=== PATIENT | male | born 1970 | race Caucasian/White ===

== ENCOUNTER 2018-06-11 11:48 | Emergency (ER) | payer MEDICAID ==
[~2018-06-11] VITALS: Ht 177.8 cm; Wt 68.0 kg
--- NOTE | 2018-06-11 12:10 | Emergency Room Report ---
History of Present Illness General Chief Complaint: Laceration Source: Patient Present Illness [facility] This patient c/o lac to left leg about 11 pm last night from glass. No other complaints. Allergies: Coded Allergies: No Known Allergies (Unverified , 06/11/18) Nursing Documentation-[facility] Past Medical History: No History, Except For Review of Systems Constitutional: Reports: no symptoms Eye: Reports: no symptoms ENT: Reports: no symptoms Respiratory: Reports: no symptoms Cardiovascular: Reports: no symptoms Gastrointestinal: Reports: no symptoms Genitourinary: Reports: no symptoms Musculoskeletal: Reports: see HPI Skin: Reports: no symptoms Psychiatric: Reports: no symptoms Neurological: Reports: no symptoms Endocrine: Reports: no symptoms Hematologic/Lymphatic: Reports: no symptoms Allergic: Reports: no symptoms All Other Systems: negative except mentioned in HPI Physical Exam Vital Signs Date Time Temp Pulse Resp B/P (MAP) Pulse Ox O2 Delivery O2 Flow Rate FiO2 06/11/18 11:49 97.9 80 18 116/75 99 97.9 Sp02 EP Interpretation: reviewed, normal General Appearance: normal inspection, well appearing, no apparent distress, alert, GCS 15, non-toxic Head: normocephalic, atraumatic Eyes: bilateral eye normal inspection, bilateral eye PERRL, bilateral eye EOMI ENT: normal ENT inspection, hearing grossly normal, normal pharynx, no angioedema, normal voice, moist mucus membranes Neck: normal inspection, full range of motion, supple, no meningismus, no bony tend Respiratory: normal inspection, lungs clear, normal breath sounds, no rhonchi, no respiratory distress, no retraction, no accessory muscle use, no wheezing Cardiovascular #1: normal inspection, regular rate, rhythm, no edema Gastrointestinal: normal inspection, normal bowel sounds, non tender, soft, no mass, non-distended Musculoskeletal: gait/station normal, normal range of motion, other - one inch horizontal lac anterior parker LLE, no infection, no fb Neurologic: normal inspection, alert, oriented x3, responsive, motor strength/ tone normal Psychiatric: normal inspection, judgement/insight normal, memory normal Suicide Risk Assessment: Suicidal Ideation: No Had intent to initiate attempt: No Pt's plan for suicide attempt: No Has means to complete attempt: No Skin: normal inspection, normal color, no rash, warm/dry Medical Decision Making Diagnostic Impression: Primary Impression: Laceration ER Course too late to suture; educated patient on cleansing Last Vital Signs Date Time Temp Pulse Resp B/P (MAP) Pulse Ox O2 Delivery O2 Flow Rate FiO2 06/11/18 11:49 97.9 80 18 116/75 99 97.9 Status: improved Disposition: HOME, SELF-CARE Patient Instructions: Nonsutured Laceration Care Alexander Griggs M.D. Jun 11, 2018 12:10
[2018-06-11 12:12] VITALS: BP 116/75
[2018-06-11 12:56] VITALS: BP 116/75
== END 2018-06-11 12:56 | disposition home or self-care (01) ==
LOC: EMR 12:10
DX: S81.812A Laceration without foreign body, left lower leg, initial encounter (principal); W25.XXXA Contact with sharp glass, initial encounter; Y92.9 Unspecified place or not applicable
CPT/HCPCS: 99282